=== PATIENT | female | born 1990 | race Caucasian/White ===

== ENCOUNTER 2018-05-09 19:23 | Emergency (ER) | payer SELFPAY ==
[~2018-05-09] VITALS: Ht 162.6 cm; Wt 54.8 kg
[2018-05-09 20:06] VITALS: BP 101/60
[2018-05-09 20:06] LABS: HCG UR SG 1.024 (1.003-1.030)
[2018-05-09 20:32] LABS: CLUE CELLS PRESENT (NONE SEEN); WET PREP WBCS FEW (FEW)
[2018-05-09 20:43] LABS: MICROSCOPIC INDICATED
[2018-05-09 20:46] LABS: CULTURE INDICATED? YES
== END 2018-05-09 21:01 | disposition home or self-care (01) ==
LOC: ED 20:23
DX: L03.115 Cellulitis of right lower limb (principal); N76.0 Acute vaginitis
CPT/HCPCS: 81001; 81025; 87077; 87086; 87186; 87210; 87491; 87591; 87808; 99284